=== PATIENT | female | born 1985 | race Caucasian/White ===

== ENCOUNTER 2017-07-06 08:11 | Emergency (ER) | payer OTHER ==
[~2017-07-06] VITALS: Ht 157.5 cm; Wt 65.0 kg
[2017-07-06] MEDS ORDERED: MULTIVITAMIN1 EAC2 PO (08:38)
[2017-07-06] MEDS ORDERED: KEFLEX500 MG PO (09:23)
[2017-07-06 09:29] VITALS: BP 118/91
== END 2017-07-06 09:37 | disposition home or self-care (01) ==
LOC: EME 08:11
PROC: 0HQGXZZ Repair Left Hand Skin, External Approach (ICD-10-PCS; principal; 2017-07-06)
DX: S61.211A Laceration without foreign body of left index finger without damage to nail, initial encounter (principal); S61.213A Laceration without foreign body of left middle finger without damage to nail, initial encounter; W26.8XXA Contact with other sharp object(s), not elsewhere classified, initial encounter; Y93.G3 Activity, cooking and baking
CPT/HCPCS: 99281; 99284

== ENCOUNTER 2017-07-18 05:41 | Day surgery (SDC) | payer OTHER ==
[~2017-07-18] VITALS: Ht 154.9 cm; Wt 63.5 kg
[~2017-07-18 05:41] MED LIST: KEFLEX500 MG PO; MULTIVITAMIN1 EAC2 PO
[2017-07-18 06:56] VITALS: BP 112/77
[2017-07-18 10:05] VITALS: BP 118/86
[2017-07-18 10:51] VITALS: BP 128/75
== END 2017-07-18 10:45 | disposition home or self-care (01) ==
LOC: SDC 05:41
PROC: 01Q40ZZ Repair Ulnar Nerve, Open Approach (ICD-10-PCS; principal; 2017-07-18)
DX: S64.491A Injury of digital nerve of left index finger, initial encounter (principal)
CPT/HCPCS: 93005; J0690; J1100; J1885; J2250; J2405; J3010; S0020

== ENCOUNTER 2017-10-06 00:02 | Emergency (ER) | payer OTHER ==
[~2017-10-06] VITALS: Ht 154.9 cm; Wt 65.0 kg
[2017-10-06] MEDS ORDERED: NAPROSYN500 MG PO (02:29)
[2017-10-06] MEDS ORDERED: PERCOCET 5/31 TABLET PO (02:29)
[2017-10-06] MEDS ORDERED: VIBRAMYCIN100 MG PO (02:29)
[2017-10-06] MEDS ORDERED: BACTROBAN OINTM22 GM TP (02:31)
[2017-10-06 03:52] VITALS: BP 170/104
== END 2017-10-06 03:52 | disposition home or self-care (01) ==
LOC: EME 00:02
PROC: 0H9TXZX (ICD-10-PCS; principal; 2017-10-06)
DX: N61.1 Abscess of the breast and nipple (principal)
CPT/HCPCS: 87070; 87075; 87076; 87205; 99281; 99284